=== PATIENT | female | born 1940 | race Caucasian/White ===

== ENCOUNTER 2019-04-26 02:28 | Inpatient (IN) | payer MEDICARE, OTHER ==
[2019-04-26] MEDS ORDERED: MAG HYDROX/AL HYDROX/SIMETH 30 ML UDC PO PRN (03:00)
[2019-04-26] MEDS ORDERED: LORAZEPAM 0.5 MG TABLET PO PRN (03:00)
[2019-04-26] MEDS ORDERED: MAGNESIUM HYDROXIDE 30 ML UDC PO PRN (03:00)
[2019-04-26] MEDS ORDERED: ACETAMINOPHEN 325 MG TABLET PO PRN (03:00)
[2019-04-26] MEDS ORDERED: TEMAZEPAM 7.5 MG CAPSULE PO PRN (03:00)
[2019-04-26] MEDS ORDERED: BLOOD SUGAR DIAGNOSTIC 1 EACH STRIP IN ONE (03:30)
[2019-04-26] MEDS ORDERED: ARIP20TA4 PO (04:32)
[2019-04-26] MEDS ORDERED: MEGE40TA PO (04:32)
[2019-04-26] MEDS ORDERED: TRAZ-214 PO (04:33)
[2019-04-26] MEDS ORDERED: PRAZ1CAP2 PO (04:34)
[2019-04-26] MEDS ORDERED: SERT100T PO (04:35)
[2019-04-26] MEDS ORDERED: CITA20TA19 PO (04:41)
[2019-04-26] MEDS ORDERED: Z GUARD REMEDY 4 OZ OINT TP PRN (09:00)
[2019-04-26] MEDS: PRAZOSIN HCL 1 MG CAPSULE PO SCH (09:00)
[2019-04-26] MEDS: MEGESTROL ACETATE 40 MG TABLET PO SCH ×2 (10:12→18:06)
[2019-04-26] MEDS ORDERED: ARIPIPRAZOLE 5 MG TABLET PO SCH (12:30)
[2019-04-26] MEDS: ENSURE ENLIVE 237 ML LIQUID (VANILLA) PO SCH (14:48)
[2019-04-26] MEDS: ARIPIPRAZOLE 5 MG TABLET PO SCH (21:03)
[2019-04-27] MEDS: ARIPIPRAZOLE 5 MG TABLET PO SCH ×3 (08:26→21:29)
[2019-04-27] MEDS: PRAZOSIN HCL 1 MG CAPSULE PO SCH (08:27)
[2019-04-27] MEDS: MEGESTROL ACETATE 40 MG TABLET PO SCH ×2 (08:27→18:20)
[2019-04-27] MEDS: ENSURE ENLIVE 237 ML LIQUID (VANILLA) PO SCH (08:32)
[2019-04-28] MEDS: ARIPIPRAZOLE 5 MG TABLET PO SCH (08:19)
[2019-04-28] MEDS: MEGESTROL ACETATE 40 MG TABLET PO SCH ×2 (08:19→16:44)
[2019-04-28] MEDS: PRAZOSIN HCL 1 MG CAPSULE PO SCH (08:19)
[2019-04-28] MEDS: ENSURE ENLIVE 237 ML LIQUID (VANILLA) PO SCH (08:20)
[2019-04-28] MEDS: OLANZAPINE 2.5 MG TABLET PO SCH ×2 (12:10→16:46)
[2019-04-28] MEDS ORDERED: OLANZAPINE 2.5 MG TABLET PO SCH (22:00)
[2019-04-29] MEDS: ENSURE ENLIVE 237 ML LIQUID (VANILLA) PO SCH (08:12)
[2019-04-29] MEDS: PRAZOSIN HCL 1 MG CAPSULE PO SCH (08:13)
[2019-04-29] MEDS: OLANZAPINE 2.5 MG TABLET PO SCH ×4 (08:13→21:16)
[2019-04-29] MEDS: MEGESTROL ACETATE 40 MG TABLET PO SCH ×2 (08:15→16:44)
[2019-04-29] MEDS: NEOMY SULF/BACITRAC ZN/POLY 15 GM TUBE TP SCH (12:24)
[2019-04-30] MEDS: OLANZAPINE 2.5 MG TABLET PO SCH ×4 (08:16→21:26)
[2019-04-30] MEDS: PRAZOSIN HCL 1 MG CAPSULE PO SCH (08:16)
[2019-04-30] MEDS: MEGESTROL ACETATE 40 MG TABLET PO SCH ×2 (08:17→16:29)
[2019-04-30] MEDS: ENSURE ENLIVE 237 ML LIQUID (VANILLA) PO SCH (08:17)
[2019-04-30] MEDS: NEOMY SULF/BACITRAC ZN/POLY 15 GM TUBE TP SCH (08:18)
[2019-05-01] MEDS: MEGESTROL ACETATE 40 MG TABLET PO SCH ×2 (08:42→16:03)
[2019-05-01] MEDS: OLANZAPINE 2.5 MG TABLET PO SCH ×4 (08:42→21:06)
[2019-05-01] MEDS: PRAZOSIN HCL 1 MG CAPSULE PO SCH (08:43)
[2019-05-01] MEDS: NEOMY SULF/BACITRAC ZN/POLY 15 GM TUBE TP SCH (08:43)
[2019-05-01] MEDS: ENSURE ENLIVE 237 ML LIQUID (VANILLA) PO SCH (08:43)
[2019-05-02] MEDS: OLANZAPINE 2.5 MG TABLET PO SCH ×3 (08:16→16:18)
[2019-05-02] MEDS: PRAZOSIN HCL 1 MG CAPSULE PO SCH (08:16)
[2019-05-02] MEDS: MEGESTROL ACETATE 40 MG TABLET PO SCH ×2 (08:17→16:18)
[2019-05-02] MEDS: ENSURE ENLIVE 237 ML LIQUID (VANILLA) PO SCH (08:18)
[2019-05-02] MEDS: NEOMY SULF/BACITRAC ZN/POLY 15 GM TUBE TP SCH (08:36)
[2019-05-02] MEDS ORDERED: OXCARBAZEPINE 150 MG TABLET PO SCH (14:30)
[2019-05-02] MEDS ORDERED: OLANZAPINE 2.5 MG TABLET PO SCH (22:00)
== END 2019-05-02 21:39 | disposition short-term general hospital (02) | DRG 885 ==
DX: F25.0 Schizoaffective disorder, bipolar type (principal); N17.0 Acute kidney failure with tubular necrosis; I10 Essential (primary) hypertension; F32.9 Major depressive disorder, single episode, unspecified; F25.1 Schizoaffective disorder, depressive type; Z91.5 Personal history of self-harm; S06.300A Unspecified focal traumatic brain injury without loss of consciousness, initial encounter; W18.30XA Fall on same level, unspecified, initial encounter; Y92.230 Patient room in hospital as the place of occurrence of the external cause

== ENCOUNTER 2019-05-02 19:06 | Inpatient (IN) | payer MEDICARE, OTHER ==
[~2019-05-02 19:06] MED LIST: ARIP20TA4 PO; CITA20TA19 PO; MEGE40TA PO; PRAZ1CAP2 PO; SERT100T PO; TRAZ-214 PO
[2019-05-02] MEDS ORDERED: ACETAMINOPHEN 325 MG TABLET PO PRN (23:30)
[2019-05-02] MEDS ORDERED: MAG HYDROX/AL HYDROX/SIMETH 30 ML UDC PO PRN (23:30)
[2019-05-02] MEDS ORDERED: HYDROCODONE/APAP 5/325MG 1 EACH TABLET PO PRN (23:30)
[2019-05-02] MEDS ORDERED: ZOLPIDEM TARTRATE 5 MG TABLET PO PRN (23:30)
[2019-05-02] MEDS ORDERED: ONDANSETRON HCL/PF 4 MG/2 ML VIAL IVP PRN (23:30)
[2019-05-02] MEDS ORDERED: Z GUARD REMEDY 2 OZ OINT TP PRN (23:30)
[2019-05-02] MEDS ORDERED: MAGNESIUM HYDROXIDE 30 ML UDC PO PRN (23:30)
[2019-05-03] MEDS: IV NS 0.9% 1,000 ML IV PRN (03:44)
[2019-05-04] MEDS: IV NS 0.9% 1,000 ML IV PRN (01:19)
[2019-05-04] MEDS: OLANZAPINE 2.5 MG TABLET PO SCH ×2 (14:53→16:48)
[2019-05-04] MEDS ORDERED: OLANZAPINE 2.5 MG TABLET PO PRN (21:00)
[2019-05-05] MEDS: OLANZAPINE 2.5 MG TABLET PO SCH ×3 (09:04→16:34)
[2019-05-05] MEDS: MEGESTROL ACETATE 40 MG TABLET PO SCH ×2 (09:04→16:34)
[2019-05-05] MEDS ORDERED: ENSURE ENLIVE 237 ML LIQUID (VANILLA) PO SCH (13:30)
[2019-05-05] MEDS ORDERED: OLANZAPINE 2.5 MG TABLET PO SCH ×2 (20:00)
[2019-05-06] MEDS: OLANZAPINE 2.5 MG TABLET PO SCH (08:08)
[2019-05-06] MEDS: MEGESTROL ACETATE 40 MG TABLET PO SCH (08:08)
[2019-05-06] MEDS ORDERED: LORAZEPAM INJ 2 MG/ML VIAL IM ONE (11:00)
== END 2019-05-06 13:27 | DRG 85 ==
DX: S06.6X0A Traumatic subarachnoid hemorrhage without loss of consciousness, initial encounter (principal); I21.A1 Myocardial infarction type 2; R64 Cachexia; Z68.1 Body mass index [BMI] 19.9 or less, adult; W18.30XA Fall on same level, unspecified, initial encounter; Y93.9 Activity, unspecified; Y99.9 Unspecified external cause status; I10 Essential (primary) hypertension; F25.0 Schizoaffective disorder, bipolar type; E86.0 Dehydration; R55 Syncope and collapse; D64.9 Anemia, unspecified; M19.90 Unspecified osteoarthritis, unspecified site; S06.5X0A Traumatic subdural hemorrhage without loss of consciousness, initial encounter; F29 Unspecified psychosis not due to a substance or known physiological condition; F43.10 Post-traumatic stress disorder, unspecified; Y92.230 Patient room in hospital as the place of occurrence of the external cause

== ENCOUNTER 2019-05-06 15:25 | Inpatient (IN) | payer MEDICARE, OTHER ==
[~2019-05-06] VITALS: Ht 154.9 cm; Wt 38.2 kg
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
--- NOTE | 2019-05-06 17:20 | NUR ---
GPS OVERFLOW TRANSFER NOTE-- PT TRANSFERRED TO [facility] UNIT RM 213A IN STABLE CONDITION VIA W/C. RESPIRATIONS ARE EVEN AND UNLABORED, NOT IN ANY ACUTE DISTRESS NOTED. PT DENIES ANY PAIN AT THIS TIME, NO C/O SOB, N/V. NO IV ACCESS. ALL BELONGINGS SENT WITH PT. REPORT GIVEN TO STEF CASTANEDA FOR CONTINUITY OF CARE.
[2019-05-06] MEDS: MEGESTROL ACETATE 40 MG TABLET PO SCH (17:28)
[2019-05-06] MEDS ORDERED: Medication Not On Formulary EA (Trazodone Hcl 1 TAB) PO SCH (18:00)
[2019-05-06] MEDS ORDERED: BLOOD SUGAR DIAGNOSTIC 1 EACH STRIP IN ONE (18:30)
[2019-05-06] MEDS ORDERED: MAGNESIUM HYDROXIDE 30 ML UDC PO PRN (18:30)
[2019-05-06] MEDS ORDERED: TEMAZEPAM 7.5 MG CAPSULE PO PRN (18:30)
[2019-05-06] MEDS ORDERED: ACETAMINOPHEN 325 MG TABLET PO PRN (18:30)
[2019-05-06] MEDS ORDERED: MAG HYDROX/AL HYDROX/SIMETH 30 ML UDC PO PRN (18:30)
[2019-05-06 18:50] VITALS: BP 123/95
[2019-05-06 20:00] VITALS: BP 125/59
[2019-05-07 08:00] VITALS: BP 147/70
[2019-05-07 08:33] LABS: ALBUMIN 3.1 g/dL (3.4-5.0); BILIRUBIN,TOTAL 0.7 mg/dL (0.2-1.0); CALCIUM, SERUM 8.7 mg/dL (8.5-10.1); CREATININE 0.8 mg/dL (0.6-1.3); POTASSIUM 3.9 mmol/L (3.5-5.1); TOTAL PROTEIN, SERUM 6.1 g/dL (6.4-8.2)
[2019-05-07 08:35] LABS: CHOLESTEROL 177 mg/dL (<200); HDL CHOLESTEROL 57 mg/dL (40-60); LDL 108 mg/dL (0-99); TRIGLYCERIDES 76 mg/dL (30-150)
[2019-05-07] MEDS ORDERED: Medication Not On Formulary EA (Sertraline Hcl (Zoloft) 1 TAB) PO SCH (09:00)
[2019-05-07] MEDS ORDERED: CITALOPRAM HYDROBROMIDE 20 MG TABLET PO SCH (09:00)
[2019-05-07] MEDS: PRAZOSIN HCL 1 MG CAPSULE PO SCH (09:24)
[2019-05-07] MEDS: MEGESTROL ACETATE 40 MG TABLET PO SCH ×2 (09:24→17:39)
[2019-05-07] MEDS: LORAZEPAM 0.5 MG TABLET PO PRN ×2 (09:25→20:27)
[2019-05-07] MEDS ORDERED: LORAZEPAM 0.5 MG TABLET PO PRN (11:30)
[2019-05-07] MEDS: busPIRone 5 MG TABLET PO SCH ×2 (13:07→17:38)
[2019-05-07] MEDS: OLANZAPINE 2.5 MG TABLET PO SCH ×2 (13:07→17:38)
[2019-05-07 16:00] VITALS: BP 101/54
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
--- NOTE | 2019-05-07 19:00 | NUR ---
RN NOTES RECEIVED PATIENT FROM GPS VIA WHEELCHAIR. PATIENT IN STABLE CONDITION. WENT TO BED AND SLEEP. NOT IN ANY FORM OF DISTRESS. NO SOB. DENIED PAIN OR DISCOMFORT. SITTER AT BEDSIDE FOR SAFETY. KEPT PATIENT SAFE AND COMFORTABLE. BED IN LOW/LOCKED POSITON, SIDERAILS UPX2, CALL LIGHT IN REACH. ENSDORSED TO STEF WISE FOR JOSE D.
--- NOTE | 2019-05-07 19:01 | NUR ---
RN NOTES Received patient A/O x3, awake on bed. On RA, no SOB/respiratory distress noted. No complaints made at this time. With sitter at bedside. Kept on bed clean, dry and comfortable. On fall precautions. Will continue to monitor accordingly.
[2019-05-07 20:00] VITALS: BP 103/49
[2019-05-07] MEDS ORDERED: TEMAZEPAM 7.5 MG CAPSULE PO PRN (20:00)
--- NOTE | 2019-05-07 20:45 | NUR ---
1901 Addendum: 05/07/19 at 2046 by FRANDY LAZCANO RN wrong entry
--- NOTE | 2019-05-08 06:48 | NUR ---
RN CLOSING NOTES Patient asleep, easily awaken. On RA, no SOB/respiratory distress noted. All nursing needs attended. Due meds given as ordered. No new complaints made. With sitter at bedside. On fall precautions. Kept on bed clean dry and comfortable. Endorsed to the next shift.
--- NOTE | 2019-05-08 07:30 | NUR ---
RN OPENING NOTE PT WAS RECEIVED ASLEEP IN BED AT LOWEST AND LOCKED POSITION WITH SIDE RAILS UP X2, A/O X3 BREATHING EVEN AND UNLABORED ON RA WITH NO S/S OF ANY DISTRESS OR PAIN AT THIS TIME, ON A 5250 HOLD, SITTER AT BEDSIDE, NO IV IN PLACE DUE TO GPS PROTOCOL, SAFETY PRECAUTIONS IN PLACE, CALL LIGHT WITHIN REACH, WILL MONITOR PT ACCORDINGLY
[2019-05-08] MEDS: busPIRone 5 MG TABLET PO SCH ×3 (08:32→16:38)
[2019-05-08] MEDS: OLANZAPINE 2.5 MG TABLET PO SCH ×3 (08:32→16:38)
[2019-05-08] MEDS: MEGESTROL ACETATE 40 MG TABLET PO SCH ×2 (08:32→16:38)
[2019-05-08] MEDS: PRAZOSIN HCL 1 MG CAPSULE PO SCH (08:51)
--- NOTE | 2019-05-08 09:47 | NUR ---
RN NOTE PT WAS ABLE TO AMBULATE WITH MANAGER OF BUSINESS AT THIS TIME
[2019-05-08] MEDS: clonazePAM 0.5 MG TABLET PO SCH ×2 (10:55→16:38)
[2019-05-08] MEDS: ENSURE ENLIVE 237 ML LIQUID (VANILLA) PO SCH (13:54)
--- NOTE | 2019-05-08 18:13 | NUR ---
RN CLOSING NOTE PT IN BED AT LOWEST AND LOCKED POSITION WITH SIDE RAILS UP X2, A/OX 3 BREATHING EVEN AND UNLABORED WITH NO PAIN OR DISTRESS, SITTER AT BEDSIDE, SAFETY PRECAUTIONS IN PLACE, CALL LIGHT WITHIN REACH, ALL NEEDS ATTENDED TO, WILL ENDORSE TO NIGHT RN FOR JOSE D.
[2019-05-08 20:00] VITALS: BP 93/43
--- NOTE | 2019-05-09 07:15 | NUR ---
RN NOTES PATIENT IN BED ALERT ORIENTED X 3. NO ACUTE DISTRESS NOTED. BREATHING UNLABORED. SAFETY MEASURES IN PLACE. CALL LIGHT WITHIN REACH. WILL CONTINUE TO MONITOR ACCORDINGLY.
--- NOTE | 2019-05-09 07:24 | NUR ---
RN CLOSING NOTES Patient asleep, easily awaken. No complaints of discomfort made. Afebrile the whole shift. Due meds given as ordered. All nursing needs attended. No new unusualities noted. With sitter at bedside at all times. Endorsed to the next shift.
[2019-05-09 08:00] VITALS: BP 151/74
[2019-05-09] MEDS: MEGESTROL ACETATE 40 MG TABLET PO SCH ×2 (09:35→17:43)
[2019-05-09] MEDS: clonazePAM 0.5 MG TABLET PO SCH ×2 (09:35→17:43)
[2019-05-09] MEDS: OLANZAPINE 2.5 MG TABLET PO SCH ×3 (09:36→17:43)
[2019-05-09] MEDS: busPIRone 5 MG TABLET PO SCH ×3 (09:36→17:43)
[2019-05-09] MEDS: PRAZOSIN HCL 1 MG CAPSULE PO SCH (09:36)
[2019-05-09] MEDS: ENSURE ENLIVE 237 ML LIQUID (VANILLA) PO SCH (09:37)
[2019-05-09 16:00] VITALS: BP 128/52
--- NOTE | 2019-05-09 18:53 | NUR ---
RN NOTES PATIENT IN BED ALERT ORIENTED X 3. NO ACUTE DISTRESS NOTED. BREATHING UNLABORED. .DUE MEDICATIONS GIVEN, NO ASE NOTED. NEEDS ATTENDED AND ANTICIPATED. KEPT CLEAN DRY AND COMFORTABLE. SAFETY MEASURES IN PLACE. CALL LIGHT WITHIN REACH.WILL ENDORSE TO NIGHT NURSE FOR CONTINUITY OF CARE.
--- NOTE | 2019-05-09 19:15 | NUR ---
RN OPENING NOTES Received patient awake on Marquez's position on bed. On RA, no SOB/respiratory distress noted at this time. With sitter at bedside at all times. No discomfort noted at this time. Kept on bed clean, dry and comfortable. On fall precautions. Call light within easy reach. Will continue to monitor accordingly.
[2019-05-09 20:00] VITALS: BP 109/46
[2019-05-09] MEDS ORDERED: clonazePAM 0.5 MG TABLET PO SCH (22:00)
--- NOTE | 2019-05-10 06:52 | NUR ---
RN CLOSING NOTES Patient noted sleeping well throughout the shift. All nursing needs attended, no new complaints made. Afebrile the whole shift. On RA, no SOB/respiratory distress noted. Endorsed to the next shift.
[2019-05-10 08:00] VITALS: BP 158/61
[2019-05-10] MEDS: busPIRone 5 MG TABLET PO SCH ×3 (08:03→16:26)
[2019-05-10] MEDS: MEGESTROL ACETATE 40 MG TABLET PO SCH ×2 (08:03→16:26)
[2019-05-10] MEDS: clonazePAM 0.5 MG TABLET PO SCH ×2 (08:03→21:18)
[2019-05-10] MEDS: OLANZAPINE 2.5 MG TABLET PO SCH ×3 (08:03→16:26)
[2019-05-10] MEDS: PRAZOSIN HCL 1 MG CAPSULE PO SCH (08:08)
[2019-05-10] MEDS: ENSURE ENLIVE 237 ML LIQUID (VANILLA) PO SCH (08:09)
[2019-05-10] MEDS ORDERED: HALOPERIDOL 1 MG TABLET PO SCH (13:00)
[2019-05-10] MEDS: HALOPERIDOL LACTATE 10 MG/5 ML UDC PO SCH ×2 (13:01→16:26)
--- NOTE | 2019-05-10 15:22 | NUR ---
Group Note: Pt was encouraged to attend group therapy on 05/10/19 at 2pm on the topic of discharge planning but the pt stated that she was feeling too anxious. SW then sat down with her for an individual intervention. She stated that she was scared about going to a longterm when she has been living on her own for years. SW explained that the pt is not safe to reside alone in her home due to the past suicide attempts that she made. Pt stated that she understands that but she stated that she will not make another attempt. SW reminded her that her daughter stated that she has said that before but when she begins to feel overwhelmed she makes an attempt and that is why being in a controlled environment is the best option for her.
[2019-05-10 16:00] VITALS: BP 143/57
--- NOTE | 2019-05-10 19:10 | NUR ---
RN OPENING NOTES Received patient awake on Marquez's position on bed. On RA, no SOB/respiratory distress noted at this time. With 1:1 sitter at bedside at all times. No discomfort noted at this time. Kept on bed clean, dry and comfortable. On fall precautions. Call light within easy reach. Will continue to monitor accordingly.
[2019-05-10 20:00] VITALS: BP 115/60
--- NOTE | 2019-05-10 21:45 | NUR ---
RN NOTES Report given to STEF Hebert
--- NOTE | 2019-05-10 21:58 | NUR ---
RN NOTES Patient transferred to GPS, room 212-1 via wheelchair in stable condition. Belongings endorsed to STEF Hebert.
--- NOTE | 2019-05-10 22:15 | NUR ---
GPR RN NOTE: RECEIVED PATIENT FROM GPS OVERFLOW, STABLE CONDITION, ALERT AND ORIENTED X 2-3, CALM, COOPERATIVE, DEPRESSED MOOD, NO AGITATION NOTED, WILL CONTINUE TO MONITOR Q15 MINS FOR SAFETY
[2019-05-11 08:00] VITALS: BP 146/56
[2019-05-11] MEDS: OLANZAPINE 2.5 MG TABLET PO SCH ×3 (08:00→16:46)
[2019-05-11] MEDS: clonazePAM 0.5 MG TABLET PO SCH ×3 (08:00→16:46)
[2019-05-11] MEDS: busPIRone 5 MG TABLET PO SCH ×3 (08:00→16:46)
[2019-05-11] MEDS: MEGESTROL ACETATE 40 MG TABLET PO SCH ×2 (08:01→16:46)
[2019-05-11] MEDS: PRAZOSIN HCL 1 MG CAPSULE PO SCH (08:01)
[2019-05-11] MEDS: ENSURE ENLIVE 237 ML LIQUID (VANILLA) PO SCH ×2 (08:03→16:46)
[2019-05-11] MEDS ORDERED: HALOPERIDOL LACTATE 10 MG/5 ML UDC PO SCH (09:00)
--- NOTE | 2019-05-11 11:39 | NUR ---
DR. FRIED MADE AWARE OF THE EKG RESULT AND NO NEW ORDER.
[2019-05-11] MEDS: HALOPERIDOL LACTATE 10 MG/5 ML UDC PO SCH ×2 (12:21→16:46)
--- NOTE | 2019-05-11 14:20 | NUR ---
GROUP NOTE: SW encouraged pt to participate in group therapy on this present day to discuss "positive coping skills." Pt refused stating she did not want to leave her room due to fear of being tied up. SW provided pt with intervention discussing pts fears and paranoia, pt stated that she felt safer in her room and she also did not want anyone touching her because there were too many unstable people on the unit. SW also discussed pts suicidal ideation and pt denied stating she felt better and no longer had suicidal thoughts. Pts mood appeared depressed with congruent affect.
[2019-05-11 16:00] VITALS: BP 122/74
[2019-05-11 19:59] VITALS: BP 113/40
[2019-05-11 20:00] VITALS: BP 113/40
[2019-05-12 07:29] LABS: ALBUMIN 2.8 g/dL (3.4-5.0); BILIRUBIN,TOTAL 0.4 mg/dL (0.2-1.0); CREATININE 0.8 mg/dL (0.6-1.3); POTASSIUM 4.1 mmol/L (3.5-5.1); TOTAL PROTEIN, SERUM 5.9 g/dL (6.4-8.2)
[2019-05-12 07:31] LABS: EOSINOPHILS % (AUTO) 2.9 % (0.0-6.0); HEMATOCRIT 32 % (33-45); LYMPHOCYTES # (AUTO) 0.9 /CMM (0.8-4.8); LYMPHOCYTES % (AUTO) 18.9 % (20.0-44.0); MEAN CORPUSCULAR HGB CONC 35 g/dl (31.0-36.0); MEAN CORPUSCULAR VOLUME 91 fL (82-100); MONOCYTES # (AUTO) 0.3 /CMM (0.1-1.30); MONOCYTES % (AUTO) 7.2 % (2.0-12.0); NEUTROPHILS # (AUTO) 3.2 /CMM (1.8-8.9); PLATELET COUNT (AUTO) 233 /CMM (150-450); WHITE BLOOD COUNT (AUTO) 4.6 K/uL (4.3-11.0)
[2019-05-12 08:00] VITALS: BP 123/52
[2019-05-12] MEDS: HALOPERIDOL LACTATE 10 MG/5 ML UDC PO SCH ×3 (08:08→16:22)
[2019-05-12] MEDS: OLANZAPINE 2.5 MG TABLET PO SCH ×3 (08:08→16:21)
[2019-05-12] MEDS: busPIRone 5 MG TABLET PO SCH ×3 (08:08→16:22)
[2019-05-12] MEDS: clonazePAM 0.5 MG TABLET PO SCH ×3 (08:08→16:21)
[2019-05-12] MEDS: PRAZOSIN HCL 1 MG CAPSULE PO SCH (08:08)
[2019-05-12] MEDS: MEGESTROL ACETATE 40 MG TABLET PO SCH ×2 (08:08→16:22)
[2019-05-12] MEDS: ENSURE ENLIVE 237 ML LIQUID (VANILLA) PO SCH ×3 (08:10→16:22)
[2019-05-12 16:00] VITALS: BP 132/57
--- NOTE | 2019-05-12 16:20 | NUR ---
TAM called the pt�s daughter, Radha ([phone]), and informed her that the pt is going to be discharged the following day to [facility].
[2019-05-12 20:15] VITALS: BP 114/44
[2019-05-13 07:58] LABS: CALCIUM, SERUM 9.1 mg/dL (8.5-10.1); CREATININE 0.7 mg/dL (0.6-1.3); POTASSIUM 3.9 mmol/L (3.5-5.1)
[2019-05-13 08:00] VITALS: BP 138/63
[2019-05-13] MEDS: clonazePAM 0.5 MG TABLET PO SCH (09:34)
[2019-05-13] MEDS: HALOPERIDOL LACTATE 10 MG/5 ML UDC PO SCH (09:34)
[2019-05-13] MEDS: busPIRone 5 MG TABLET PO SCH (09:34)
[2019-05-13] MEDS: MEGESTROL ACETATE 40 MG TABLET PO SCH (09:34)
[2019-05-13] MEDS: OLANZAPINE 2.5 MG TABLET PO SCH (09:34)
[2019-05-13] MEDS: ENSURE ENLIVE 237 ML LIQUID (VANILLA) PO SCH (09:35)
[2019-05-13] MEDS: PRAZOSIN HCL 1 MG CAPSULE PO SCH (09:36)
--- NOTE | 2019-05-13 09:49 | NUR ---
initial Received patient awake on Marquez's position on bed. On RA, no SOB/respiratory distress noted at this time. No discomfort noted at this time. Kept on bed clean, dry and comfortable. On fall precautions. Call light within easy reach. Will continue to monitor accordingly.
--- NOTE | 2019-05-13 11:01 | NUR ---
TRANSFER CALLED [facility] SPOKE WITH DOUG FINCH PAEDIATRICIAN GIVING REPORT ETA 1200
--- NOTE | 2019-05-13 11:59 | NUR ---
DISCHARGE [id number] PT DENIES SUICIDAL AND HOMICIDAL IDEATIONS AT THIS TIME. ALL BELONGINGS GIVEN TO PT ALONG WITH [facility] INSTRUCTIONS.
[2019-05-13 12:01] VITALS: BP 140/59
--- NOTE | 2019-05-13 16:20 | NUR ---
Discharge Note: Pt was discharged to [facility] ([facility]) located at [address] [place] [address]; ([phone]). Pt was transported via [facility] at 11AM. Pt�s daughter, Radha ([phone]), was notified of the discharge. Upon discharge, the pt appeared to be in a euthymic mood and presented with an anxious affect. The pt denied both suicidal and homicidal ideation as well as auditory and visual hallucinations. The pt will be under the care of her psychiatrist, Dr. Christine, located at [address] [address]; and her zipper trimmer, Dr. Feliz, located at [address] [place] [address]; .
== END 2019-05-13 12:00 | DRG 882 ==
LOC: GPSOV2 15:25 → GPS 17:02 → GPSOV2 05-07 18:42 → GPS 05-10 21:59
PROVIDERS: ADMIT Psychiatry & Neurology Psychosomatic Medicine; ATTEND Internal Medicine
DX: F43.10 Post-traumatic stress disorder, unspecified (principal); R64 Cachexia; Z68.1 Body mass index [BMI] 19.9 or less, adult; E44.0 Moderate protein-calorie malnutrition; F25.0 Schizoaffective disorder, bipolar type; E86.0 Dehydration; E78.5 Hyperlipidemia, unspecified; I10 Essential (primary) hypertension; F39 Unspecified mood [affective] disorder; Z91.5 Personal history of self-harm; R55 Syncope and collapse; S06.6X0D Traumatic subarachnoid hemorrhage without loss of consciousness, subsequent encounter; S06.5X0D Traumatic subdural hemorrhage without loss of consciousness, subsequent encounter; W19.XXXD Unspecified fall, subsequent encounter
CPT/HCPCS: 36415; 80048-TC; 80053-TC; 80061-TC; 82962-TC; 83735-TC; 85025-TC; 87081-TC